=== PATIENT | female | born 1950 | race African-American/Black ===

== ENCOUNTER → 2016-07-31 | Outpatient (CLI) | payer OTHER ==
[~2016-07-31] VITALS: Ht 157.5 cm; Wt 68.5 kg
[~2016-07-31] MED LIST: ASPIR 8181 MG PO; CALCIUM 600 +1 EAC8 PO; COZAAR100 MG PO; ESTRADIOL 1 MG T1 M1 PO; LIPITOR40 MG PO; MAXZIDE-25 MG1 EACH PO; NORCO 10-325 T1 EACH PO; NORVASC10 MG PO; PAROXETINE HCL20 MG PO; ZANAFLEX4 MG PO
--- NOTE | ~2016-07-31 | HPC ---
[facility] [address] [place] [address] PAIN MANAGEMENT CONSULTATION Name: VICENTE KRISHNAN Room #: REG Haritha Grimes#: [id number] Admission: 07/31/16 Attend Phys: Andrew Beckman DO Discharge: Date of : 50 Report #: [id number] THIS REPORT FOR: //name// CC: Jose Tate DO Andrew Beckman DATE OF SERVICE: 07/31/2016 The patient is a 65-year-old female seen in consultation at request Dr. Tate for evaluation of pain, right low back, hip, radiating to the knee. The patient notes symptoms began after cooking all day on . Pain has become quite problematic, exacerbated with walking, sitting or standing. Only relief is when she is recumbent. She describes pulling, sharp, stabbing pain she rates anywhere from 8-10 on a 0-10 visual analog scale. Was given a Medrol Dosepak with some efficacy. Cannot take anti-inflammatory medications due to renal disease. Her health picture is complicated by the fact that she developed cholecystitis late June, was actually admitted 07/08/2016 through 07/14/2016 for laparoscopic cholecystectomy at [facility]. Currently, she notes she has weakness in the right leg, paresthesia into the foot though she notes that this is status post 5 surgeries on that right foot and seems to be unrelated to current chief complaint. Denies bowel or bladder continence changes. REVIEW OF SYSTEMS: Complete review of systems was attached to chart and gone over with the patient. She is . Does not smoke or drink alcohol to excess. She is seen in the company of her who is supportive. History of hypertension treated with losartan, amlodipine and triamterene/hydrochlorothiazide, history of hepatitis in 1970, chronic renal insufficiency by history, history of some chronic anxiety and depression for which she takes fluoxetine. She started this around menopause, dyslipidemia for which she takes atorvastatin. Pain impact score is fairly high, averaging about 7.2 for all indices queried. PHYSICAL EXAMINATION: Reveals a 5-foot 2-inch, 150-pound female. Blood pressure is 138/74, pulse is 67, respirations are 14, BMI is 27.6 kilograms per meter squared. Cranial nerves 2-12 are grossly intact. Pupils equal, reactive to light and accommodation. Extraocular muscles are intact. Thyroid is unremarkable. Alert and oriented to person, place and time, judged to be a reasonable historian. Upper extremity strength is preserved. Heart is regular rate and rhythmical without murmur. Lungs are clear to auscultation. Abdomen is unremarkable. Rises from chair using armrest, has modestly antalgic gait. Lumbar flexion is limited about 80 degrees. Tender over the right SI joint. Lower extremity strength is symmetric at 4/5 to all muscle groups tested. Straight leg raise is negative, though it does exacerbate some low back pain, no [facility] [address] [place] [address] PAIN MANAGEMENT CONSULTATION Name: VICENTE KRISHNAN Room #: REG MARYELLEN Grimes#: [id number] Admission: 07/31/16 Attend Phys: Andrew Beckman DO Discharge: Date of : 50 Report #: [id number] classic neural tensioning symptoms. Patellar and Achilles reflexes are preserved. Tender over the right SI with a positive Alissa test on this side. DIAGNOSTIC STUDIES: There are no diagnostic studies available for evaluation at this time. ASSESSMENT: 1. 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 2. Hypertension. 3. Chronic renal insufficiency. 4. Dyslipidemia. RECOMMENDATION: 1. Right SI joint injection under fluoroscopy today. 2. Anti-inflammatory medications relatively contraindicated due to renal disease. 3. Core strengthening exercises discussed 4. Tizanidine 4 mg 1/2-1 tablet 3 times a day for spasm and pain. 5. Follow up in 4 weeks for reevaluation. Thank you for allowing me to participate in the patient's care. I will keep you abreast of her progress. PROCEDURE NOTE: Right SI joint injection under fluoroscopy. PROCEDURE: After written informed consent was obtained, the patient was taken to fluoroscopy suite, placed in prone position. After sterile prep and drape, skin wheal was raised. A 22-gauge stylet needle was placed in the inferior aspect of the right SI joint. Negative aspiration was accomplished, 40 mg triamcinolone plus 1 mL of 0.5% preservative-free bupivacaine was injected into and around the joint. Needle was removed, area was cleansed, Band-Aids applied. The patient was monitored for an appropriate period of time, discharged in good and stable condition. <ELECTRONICALLY SIGNED> By: Andrew Beckman DO 08/05/16 0729 [id number] Andrew Beckman DO /nt
[2016-07-31 10:15] VITALS: BP 138/74
== END | disposition home or self-care (01) ==
LOC: PAIN 07-17 11:31
DX: M53.3 Sacrococcygeal disorders, not elsewhere classified (principal); M47.897 Other spondylosis, lumbosacral region; I10 Essential (primary) hypertension; N28.9 Disorder of kidney and ureter, unspecified; E78.5 Hyperlipidemia, unspecified; Z90.49 Acquired absence of other specified parts of digestive tract

== ENCOUNTER → 2016-09-07 | Outpatient (CLI) | payer OTHER ==
[~2016-09-07] VITALS: Ht 160 cm; Wt 71.4 kg
--- NOTE | ~2016-09-07 | HPC ---
[facility] [place] [address] PAIN MANAGEMENT CONSULTATION Name: VICENTE KRISHNAN Room #: REG [id number] Admission: 09/07/16 Attend Phys: Andrew Beckman DO Discharge: Date of : 50 Report #: [id number] THIS REPORT FOR: //name// CC: Jose Beckman HISTORY OF PRESENT ILLNESS: The patient is a 65-year-old female previously seen in the pain clinic on 07/31/2016, diagnosed with symptomatic lumbar radiculopathy, right SI joint dysfunction, chronic renal insufficiency, contraindicating nonsteroidal anti-inflammatory medication. The patient given a right SI joint injection at that time with only nominal efficacy and returns to the pain clinic today, still has ongoing pain in the low back, right buttock and leg. Rates her pain 9 on a 0-10 visual analog scale. PHYSICAL EXAMINATION: Shows positive straight leg raise on the right. Diffuse tenderness across the low back. ASSESSMENT: Symptomatic lumbar radiculopathy. PROCEDURE: Lumbar epidural injection under fluoroscopy. PROCEDURE NOTE: After both written and informed consent to include risk of spinal cord damage, increased pain, weakness and dural puncture, the patient was taken to the fluoroscopy suite, placed in the prone position. After sterile prep and drape, a skin wheal with lidocaine was raised. A 22-gauge epidural Tuohy needle was inserted in the midline at L4-L5 with good loss to resistance. Negative aspiration for cerebrospinal fluid or blood was noted. Then 1 mL of Omnipaque under biplanar fluoroscopy showed good spread within the epidural space. This was followed with 80 mg of triamcinolone plus 1 mL of 1.5% preservative-free Xylocaine, 0.5 mL Xylocaine was then injected to flush the needle; it was removed. The patient was monitored for an appropriate period of time and discharged in good and stable condition. The patient discharged in good and stable condition, noting dramatic improvement of baseline pain, in fact noted pain was absent on discharge. Follow up in 2-3 weeks for reevaluation. <ELECTRONICALLY SIGNED> By: Andrew Beckman DO 09/09/16 1105 [id number] Andrew Beckman DO /nt
[2016-09-07 12:38] VITALS: BP 145/81
== END | disposition home or self-care (01) ==
LOC: PAIN 08-14 06:55
DX: M54.16 Radiculopathy, lumbar region (principal); M53.3 Sacrococcygeal disorders, not elsewhere classified; N28.9 Disorder of kidney and ureter, unspecified

== ENCOUNTER 2018-04-10 13:00 | Emergency (ER) | payer OTHER ==
[~2018-04-10] VITALS: Ht 154.9 cm; Wt 72.1 kg
--- NOTE | ~2018-04-10 | EKG ---
[place] [address] [facility] [place] [address] ELECTROCARDIOGRAM REPORT Name: KRISHNANVICENTE J Room #: DEP Cornelio#: [id number] Admission: 04/10/18 Attend Phys: Discharge: 04/10/18 Date of : 50 Report #: [id number] THIS REPORT FOR: //name// [facility] ED Test Date: 2018-04-10 Test Time: 13:23:06 Pat Name: VICENTE KRISHNAN Department: Room: Gender: F Life Skills Specialist: : 1950 Requested By: Rona Daily Order Number: [id number] MD: Manuel Childs Measurements Intervals Patrick Rate: 62 P: 53 ID: [id number] QRS: 32 QRSD: 75 T: 15 QT: 428 QTc: 435 Interpretive Statements Sinus rhythm Abnormal R-wave progression, early transition No previous ECG available for comparison Electronically Signed On 04-10-2018 17:26:58 CDT by Manuel Childs [email or web address] <ELECTRONICALLY SIGNED> By: Manuel Childs MD 04/10/18 1726 1323 1323 MD ELOY Goodson
[2018-04-10 14:10] LABS: ABSOLUTE NEUTROPHILS 5.6 thou/uL (1.4-8.2); BASOPHILS 1.1 % (0.0-2.0); HEMATOCRIT 30.4 % (37.0-47.0); HEMOGLOBIN 10.2 gm/dL (12.0-15.0); LYMPHOCYTES 26.3 % (24.0-44.0); MCH 27.5 pg (26.0-34.0); MCHC 33.5 g/dL (28.0-37.0); MONOCYTES 6.3 % (1.0-8.0); PLATELET COUNT 298 thou/uL (150-400); POLYS 64.3 % (36.0-66.0); RBC 3.71 mil/uL (4.20-5.00); RDW 15.3 % (10.5-14.5); WBC 8.7 thou/uL (4.0-11.0)
[2018-04-10 14:16] LABS: ANION GAP 9 mmol/L (7-16); BUN 37 mg/dL (7-18); CALCIUM 8.8 mg/dL (8.5-10.1); CHLORIDE 107 mmol/L (98-107); CO2 23 mmol/L (21-32); CREATININE 2.8 mg/dL (0.6-1.0); GLUCOSE 97 mg/dL (74-106); SODIUM 139 mmol/L (136-145)
[2018-04-10 14:25] LABS: TROPONIN-I <0.06 ng/mL (<0.06)
[2018-04-10] MEDS ORDERED: MECLIZINE HCL12.5 MG PO (15:52)
== END 2018-04-10 16:16 | disposition home or self-care (01) ==
LOC: ER 13:00
PROVIDERS: Student in an Organized Health Care Education/Training Program
DX: R42 Dizziness and giddiness (principal); R11.0 Nausea; I10 Essential (primary) hypertension; E78.00 Pure hypercholesterolemia, unspecified; Z88.2 Allergy status to sulfonamides; Z88.8 Allergy status to other drugs, medicaments and biological substances; Z90.49 Acquired absence of other specified parts of digestive tract